=== PATIENT | male | born 1960 | race Hispanic/Latino ===

== ENCOUNTER → 2023-10-25 | Outpatient (CLI) | payer OTHER ==
[~2023-10-25] MED LIST: PHENYLEPHRINE HCL 10 MG/ML 1ML VIAL IV ONE
== END | disposition home or self-care (01) ==
LOC: RAH 08:42 → EDBD 09:00
PROVIDERS: ATTEND Internal Medicine Cardiovascular Disease
DX: Z13.6 Encounter for screening for cardiovascular disorders (principal)
CPT/HCPCS: 75571; J2371